=== PATIENT | female | born 1955 | race Caucasian/White ===

== ENCOUNTER 2017-04-04 12:28 | Day surgery (SDC) | payer BC ==
[2017-04-02 09:35] LABS: BASOPHILS 0.4 %; BASOPHILS ABSOLUTE 0.04 10/3/uL (0.0-0.16); EOSINOPHILS 4.4 %; EOSINOPHILS ABSOLUTE 0.39 10/3/uL (0.0-0.53); HEMATOCRIT 45.2 % (36.0-48.0); HEMOGLOBIN 15.7 g/dL (12.0-16.0); IMMATURE GRANULOCYTES 0.2 %; IMMATURE GRANULOCYTES ABSOLUTE 0.02 10/3/uL (0.0-0.11); LYMPHOCYTES ABSOLUTE 3.83 10/3/uL (0.67-4.30); MANUAL DIFF NO %; MEAN CORPUS HGB CONC 34.7 g/dL (32.0-36.0); MEAN CORPUSCULAR HEMOGLOB 33.1 pg (26.0-34.0); MEAN CORPUSCULAR VOLUME 95.2 fL (80-100); MEAN PLATELET VOLUME 9.5 fL (9.2-13.0); MONOCYTES 6.6 %; MONOCYTES ABSOLUTE 0.59 10/3/uL (0.21-1.20); NEUTROPHILS 45.4 %; NEUTROPHILS ABSOLUTE 4.03 10/3/uL (2.02-8.40); PLATELET COUNT 235 10/3/uL (150-400); RBC DISTRIBUTION WIDTH 13.1 % (12.0-16.0); RED CELL COUNT 4.75 10/6/uL (4.0-5.6); WHITE BLOOD CELLS 8.9 10/3/uL (4.5-10.5)
[2017-04-02 09:42] LABS: PARTIAL THROMBO TIME 27.6 SEC (22.5-37.2)
[2017-04-02 09:54] LABS: BUN (BLOOD UREA NITROGEN) 16 MG/DL (6-23); CALCIUM, SERUM 9.3 MG/DL (8.5-10.4); CHLORIDE, SERUM 108 MMOL/L (96-112); CO2 (CARBON DIOXIDE) 28 MMOL/L (24-34); CREATININE 0.66 MG/DL (0.55-1.02); GFR AFRICAN AMERICAN 110 ML/MIN (>=60); GFR NON AFRICAN AMERICAN 95 ML/MIN (>=60); GLUCOSE, SERUM 182 MG/DL (60-99); POTASSIUM, SERUM 3.8 MMOL/L (3.5-5.3); SODIUM, SERUM 145 MMOL/L (135-148)
--- NOTE | ~2017-04-04 | OP ---
Record Of Operation [facility] [address] [place]. [address] NAME: YANCI GONZALEZ : 53 STATUS : REG [facility] PAT#: [id number] AGE: 61 ADM/REG DATE : 04/04/17 MR#: [id number] REPORT SERV DATE: 04/04/17 DICTATED BY: TAD RENTERIA DATE: 04/04/17 REPORT STATUS : Draft TRANSCRIBED BY: MODL DATE: 04/04/17 DATE OF PROCEDURE: 04/04/2017 PREOPERATIVE DIAGNOSIS: 6 mm left ureteropelvic junction stone. POSTOPERATIVE DIAGNOSIS: 6 mm left ureteropelvic junction stone. PROCEDURE PERFORMED: Cystoscopy, left retrograde pyelogram, left flexible ureterorenoscopy, holmium laser stone fragmentation, and stent placement. SURGEON: Tad Renteria M.D. ANESTHESIA: General. ESTIMATED BLOOD LOSS: Less than 10 mL. 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 After discussion of management options, we have elected to proceed with endoscopic management. Risks of infection, bleeding, failure have been discussed. PROCEDURE IN DETAIL: The patient was taken to the operating room and underwent a general anesthetic. She was placed in the lithotomy position on the table, and her external genitalia were sterilely prepped and draped. The 22-Burundian cystoscope sheath with obturator was inserted through a tight urethra into the bladder. The bladder was inspected and the mucosa looked normal throughout. There was a moderate cystocele. Single orifices were seen bilaterally. There were no stones or mass lesions in the bladder. The left orifice was cannulated with a 5-Burundian open-ended catheter and a retrograde pyelogram was obtained showing a normal caliber ureter and a normal looking left collecting system. It looked like there was a mobile filling defect in the left renal pelvis corresponding to the known stone. An 0.038 guidewire was advanced up and accessed through the ureteral catheter into the kidney under fluoroscopic guidance. The endoscopic apparatus was removed from the bladder. A 9.5/11-Burundian ureteral access sheath with obturator was advanced over the guidewire up into the proximal ureter under fluoroscopic guidance. A second guidewire was placed through the access sheath and the sheath and obturator were then replaced over one of the two wires leaving the other in place as a safety wire. The flexible ureteroscope was advanced through the access sheath and on up into the proximal ureter and on up into the collecting system of the kidney. The collecting system was thoroughly inspected and we found a mobile roughly 6 or 7 mm lower pole renal calculus. No other significant stones were noted. The stone was grabbed with a basket and re-deposited in the upper pole calyx and a 200 micron laser fiber was used to then fragment the stone down into many tiny pieces in the 1 mm range. The collecting system was reinspected with no new findings. The ureteroscope was then withdrawn down through the ureter under direct vision with no stones noted there either. The cystoscope was replaced over the guidewire and a 6-Burundian x 26 cm Contour stent was advanced over the guidewire such that the proximal end of the stent was observed to coil in the pelvis of the kidney under fluoroscopic guidance and the distal end of the stent was Record Of Operation [address] [address] NAME: YANCI GONZALEZ : 53 STATUS : REG [facility] PAT#: [id number] AGE: 61 ADM/REG DATE : 04/04/17 MR#: [id number] REPORT SERV DATE: 04/04/17 DICTATED BY: TAD RENTERIA DATE: 04/04/17 REPORT STATUS : Draft TRANSCRIBED BY: DEB DATE: 04/04/17 visually observed to coil in the bladder following removal of the guidewire. The stent was left connected to a string dangle which was taped to the patient's inner thigh. The bladder was drained. The endoscopic apparatus was removed and the patient was taken to recovery in stable condition. DS/DEB Tad Renteria M.D. / [id number] CC: Urmila Kilpatrick D.O.
[~2017-04-04 12:28] MED LIST: BENICAR HCT1 TAB PO; CELEBREX1 PO; CO Q-10100 MG PO; CRESTOR10 PO; FISH-EPA1000 MG PO; GLUCCHONDR PO; GLUCOTROL5 PO; GLUCPH PO; HYZAAR 50/12.51 TAB PO; KDUR20 PO; LOFIBRA134 MG PO; PAX10 PO; PRAVACHOL40 MG PO; VITE PO
== END 2017-04-04 20:22 | disposition home or self-care (01) ==
LOC: SDC 12:28
PROVIDERS: Urology
PROC: 0T778DZ Dilation of Left Ureter with Intraluminal Device, Via Natural or Artificial Opening Endoscopic (ICD-10-PCS; 2017-04-04)
PROC: BT1FZZZ Fluoroscopy of Left Kidney, Ureter and Bladder (ICD-10-PCS; 2017-04-04)
PROC: 0TF78ZZ Fragmentation in Left Ureter, Via Natural or Artificial Opening Endoscopic (ICD-10-PCS; principal; 2017-04-04 13:45)
DX: N20.1 Calculus of ureter (principal); I10 Essential (primary) hypertension; E11.9 Type 2 diabetes mellitus without complications; M19.90 Unspecified osteoarthritis, unspecified site; Z98.890 Other specified postprocedural states; Z88.2 Allergy status to sulfonamides; Z90.49 Acquired absence of other specified parts of digestive tract; Z96.651 Presence of right artificial knee joint
CPT/HCPCS: 71020; 74420; 80048; 82962; 85025; 85610; 85730; 93005; 94640; A9270-GY; C1758; C1894; C2617; J2250; J2370; J2405; J2550; J2710; J3010; Q9967